=== PATIENT | male | born 1955 | race Caucasian/White ===

== ENCOUNTER 2017-07-01 08:24 | Day surgery (SDC) | payer OTHER ==
[2017-07-01] MEDS ORDERED: ceFAZolin 2 GM/SWFI 2 GM/20 ML SYR IVP ONE (08:35)
[2017-07-01] MEDS ORDERED: LR 1,000 ML IV ONE (08:55)
[2017-07-01] MEDS ORDERED: MINERAL OIL 10 ML VIAL ONE (09:13)
[2017-07-01] MEDS ORDERED: BUPIVACAINE 0.5% 30 ML SDV ONE (09:13)
[2017-07-01] MEDS ORDERED: THROMBIN (BOVINE) 20,000 UNIT SPRAY TP ONE (09:13)
[2017-07-01] MEDS ORDERED: MIDAZOLAM 2 MG/2 ML VIAL IVP ONE (09:53)
--- NOTE | 2017-07-01 10:09 | PDANEPAE ---
ANE History of Present Illness Basal cell carcinoma ANE Past Medical History - Cardiovascular History Hx Hypertension: No Hx Arrhythmias: No Hx Chest Pain: No Hx Coronary Artery / Peripheral Vascular Disease: No Hx CHF / Valvular Disease: No Hx Palpitations: No Cardiovascular History Comment: BP RUNS HIGH AT TIMES - NO MEDS - Pulmonary History Hx COPD: No Hx Asthma/Reactive Airway Disease: No Hx Recent Upper Respiratory Infection: No Hx Oxygen in Use at Home: No Hx Sleep Apnea: No Sleep Apnea Screening Result - Last Documented: Negative - Neurologic History Hx Cerebrovascular Accident: No Hx Seizures: No Hx Dementia: No - Endocrine History Hx Diabetes: No - Renal History Hx Renal Disorders: No - Liver History Hx Hepatic Disorders: No - Neurological & Psychiatric Hx Hx Neurological and Psychiatric Disorders: No Neurological / Psychiatric History Comment: ANXIETY PREOPERATIVELY - Cancer History Hx Cancer: Yes Cancer History Comment: SKIN CANCER - Congenital Disorder History Hx Congenital Disorders: No - GI History Hx Gastrointestinal Disorders: Yes Gastrointestinal History Comment: OCCAS HEARTBURN - Other Health History Other Health History: NEG - Chronic Pain History Chronic Pain: Yes (MILD BACK PAIN W/ARTHRITIS) - Surgical History Prior Surgeries: ORAL SURGERY ANE Review of Systems Review of Systems: - Exercise capacity METS (RN): 4 METS ANE Patient History - Allergies Allergies/Adverse Reactions: acetaminophen [From Percocet] Allergy (Verified 06/30/17 12:48) WARM ALL OVER & ITCHY hydrocodone Allergy (Verified 06/30/17 12:48) WARM ALL OVER & ITCHY oxycodone [From Percocet] Allergy (Verified 06/30/17 12:48) WARM ALL OVER & ITCHY - Home Medications Home Medications: Herbals/Supplements -Info Only 06/30/17 [Last Taken 1 Day Ago ~06/30/17] Ibuprofen 06/30/17 [Last Taken 3 Days Ago ~06/28/17] Naproxen 06/30/17 [Last Taken 3 Days Ago ~06/28/17] Aspirin [Aspirin 81mg (*)] 81 mg PO DAILY 07/01/17 [Last Taken 1 Day Ago ~] - NPO status NPO Since - Liquids (Date): 07/01/17 NPO Since - Liquids (Time): 06:30 NPO Since - Solids (Date): 06/30/17 NPO Since - Solids (Time): 20:00 - Smoking Hx Smoking Status: Current every day smoker - Family Anes Hx Family Hx Anesthesia Complications: NEG ANE Labs/Vital Signs - Vital Signs Blood Pressure: 140/95 Heart Rate: 79 Respiratory Rate: 18 O2 Sat (%): 97 Height: 180.34 cm Weight: 74.571 kg ANE Physical Exam - Airway Neck exam: FROM Mallampati Score: Class 1 Mouth exam: dentures - Pulmonary Pulmonary: no respiratory distress - Cardiovascular Cardiovascular: regular rate and rhythym - ASA Status ASA Status: II ANE Anesthesia Plan Anesthesia Plan: general endotracheal anesthesia
[2017-07-01] MEDS ORDERED: DEXAMETHASONE 4 MG/ML VIAL ONE (10:12)
[2017-07-01] MEDS ORDERED: ROCURONIUM 50 MG/5 ML VIAL ONE (10:12)
[2017-07-01] MEDS ORDERED: fentaNYL 100 MCG/2 ML INJ ONE ×2 (10:12→10:13)
[2017-07-01] MEDS ORDERED: ONDANSETRON 4 MG/2 ML VIAL ONE ×2 (10:12→13:26)
[2017-07-01] MEDS ORDERED: PROPOFOL 200 MG/20 ML VIAL ONE (10:13)
[2017-07-01] MEDS ORDERED: ONDANSETRON 4 MG/2 ML VIAL IVP PRN (11:09)
[2017-07-01] MEDS ORDERED: fentaNYL 100 MCG/2 ML INJ IVP PRN (11:09)
[2017-07-01] MEDS ORDERED: HYDROmorphONE/DILAUDID 2 MG/ML INJ IVP PRN (11:09)
[2017-07-01] MEDS ORDERED: PROMETHAZINE HCL 25 MG/ML INJ IVP PRN (11:09)
[2017-07-01] MEDS ORDERED: HYDROCODONE/APAP 5/325 TAB PO PRN (11:09)
[2017-07-01] MEDS ORDERED: NALOXONE HCL 0.4 MG/ML INJ IVP PRN (11:09)
[2017-07-01] MEDS ORDERED: THROMBIN (BOVINE) 20,000 UNIT VIAL TP ONE (11:28)
--- NOTE | 2017-07-01 12:20 | POSTANESTH ---
Post Anesthetic Evaluation Cardiovascular Status: Normal, Stable Respiratory Status: Normal, Stable Level of Consciousness/Mental Status: Can Participate in Eval Pain Control: Adequate, Prn Tx Ordered Nausea/Vomiting Control: Adequate, Prn Tx Ordered Complications Possibly Related to Anesthesia: None Noted
[2017-07-01 13:34] VITALS: BP 132/71
--- NOTE | 2017-07-02 13:50 | GOP ---
[f rep st] OPERATIVE REPORT DATE OF OPERATION: 07/01/2017 SURGEON: Arnulfo Tinajero MD LEARNING AND DEVELOPMENT MANAGER: Lorena Agustin NP. ANESTHESIOLOGIST: Dr. Lorenzo. PREOPERATIVE DIAGNOSIS: Basal cell carcinoma on the upper back POSTOPERATIVE DIAGNOSIS: Basal cell carcinoma on the upper back PROCEDURE PERFORMED: Wide excision of multiple upper back basal cell carcinomas with advancement flap closure. FINDINGS: 15 X 3 CM AREA OF MULTIPLE BASAL CELLS IN THE UPPER BACK LARGEST CHIEF WHICH WAS 6 X 3 CM ESTIMATED BLOOD LOSS: 50 cc or less. DESCRIPTION OF PROCEDURE: Patient was in the operating room under general endotracheal anesthesia by Dr. Lorenzo. He was prepped and draped in the usual sterile fashion in the right lateral decubitus position. An elliptical skin incision was made to include 4 separate areas of basal cell cancer on the upper back. Full-thickness excision was done down to and in places including the muscular fascia and removed. Hemostasis was thoroughly obtained. The specimen was 18 cm x 5 cm. The skin and subcutaneous flaps were developed above and below the area and advanced into the wound, which was closed with interrupted 2- 0 Vicryl sutures for the fascia, 3-0 Vicryl subcutaneous sutures, and skin bashir for the skin. Prior to closure, a 15 round silicone COLEEN drain had been brought in through a separate stab incision and secured to the skin with a silk suture. The wound was sprayed with some topical thrombin and injected with some 0.5% Marcaine and then dressed. He tolerated the procedure well. There were no complications. /[id number]/MODL MTDD
--- NOTE | 2017-07-02 13:50 | GOP ---
[f rep st] OPERATIVE REPORT DATE OF OPERATION: 07/01/2017 SURGEON: Arnuflo Tinajero MD OPERATIONS TEAM LEADER: Lorena Agustin NP. PREOPERATIVE DIAGNOSIS: Basal cell carcinoma of the left foot. POSTOPERATIVE DIAGNOSIS: Basal cell carcinoma of the left foot. PROCEDURE PERFORMED: Wide excision of the left foot basal cell cancer with full -thickness skin graft. FINDINGS: 3 CM BASAL CELL CANCER ON THE DORSUM OF THE LEFT FOOT ESTIMATED BLOOD LOSS: Negligible. DESCRIPTION OF PROCEDURE: Patient taken to the operating room where he received satisfactory general endotracheal anesthesia by Dr. Lorenzo. He was placed in the right lateral decubitus position, prepped and draped in the usual sterile fashion after induction of general endotracheal anesthesia. An elliptical incision was made over the basal cell cancer on the dorsum of his left foot. This was completely excised including the subcutaneous tissue. It was appropriately marked and sent to Pathology. The skin at that level could not be mobilized enough for direct closure. An elliptical skin incision was made in the left groin, and skin was elevated up. It was de-fatted and excised and used as a full-thickness skin graft with bashir in place on the dorsum of the foot. It was then dressed with Xeroform gauze and cotton balls and 3-0 silk sutures were tied over the bolster to keep it in place. The mesh had been pie crusted as well for better drainage. The leg was dressed appropriately with pressure-type dressing. He tolerated the procedure well. There were no complications. /[id number]/MODL MTDD
== END 2017-07-01 14:43 | disposition home or self-care (01) ==
LOC: FSGY 08:24
PROVIDERS: ATTEND Surgery
PROC: 0HRNX73 Replacement of Left Foot Skin with Autologous Tissue Substitute, Full Thickness, External Approach (ICD-10-PCS; principal; 2017-07-01 09:45)
PROC: 0JX Subcutaneous Tissue and Fascia, Transfer (ICD-10-PCS; principal; 2017-07-01 09:45)
PROC: 0JBR0ZX Excision of Left Foot Subcutaneous Tissue and Fascia, Open Approach, Diagnostic (ICD-10-PCS; principal; 2017-07-01 09:45)
PROC: 0JB70ZX Excision of Back Subcutaneous Tissue and Fascia, Open Approach, Diagnostic (ICD-10-PCS; principal; 2017-07-01 09:45)
DX: C44.519 Basal cell carcinoma of skin of other part of trunk (principal); C44.612 Basal cell carcinoma of skin of right upper limb, including shoulder; C44.719 Basal cell carcinoma of skin of left lower limb, including hip; M19.90 Unspecified osteoarthritis, unspecified site
CPT/HCPCS: J0690; J1100; J2250; J2405; J2704; J3010